=== PATIENT | female | born 1970 | race Caucasian/White ===

== ENCOUNTER 2020-05-22 08:04 | Day surgery (SDC) | payer BC ==
[2020-05-19 10:02] LABS: HEMATOCRIT 39.8 % (36.0-47.0); HEMOGLOBIN 13.5 g/dL (12.0-15.5); MEAN CORPUSCULAR HEMOGLOBIN 30.9 pg (27.0-33.4); MEAN CORPUSCULAR HGB CONC 33.9 g/dL (32.0-36.0); MEAN CORPUSCULAR VOLUME 91 fl (80-97); PLATELET COUNT 298 10^3/uL (150-450); RED BLOOD COUNT 4.37 10^6/uL (3.72-5.28); RED CELL DISTRIBUTION WIDTH 13.8 % (11.5-14.0); WHITE BLOOD COUNT 9.5 10^3/uL (4.0-10.5)
[~2020-05-22 08:04] MED LIST: ACETAMINOPHEN 325 MG TABLET PO PRN; CEFAZOLIN 2 GM/D5W RTU 2 GM/50 ML RTUPB IV ONE; CEFAZOLIN SODIUM 2 GM in DEXTROSE 5%-WATER 100 ML IV PRN; LACTATED RINGERS 1000 ML IV PRN; LIDOCAINE 0.5% INJ-PF (5 MG/ML) 50 ML SDV SUBCUT PRN
[2020-05-22] MEDS ORDERED: BUPIVACAINE INJ/PF LIPOSOME/PF 266 MG/20 ML SDV ONE (09:43)
[2020-05-22] MEDS ORDERED: HEPARIN SOD (PORCINE) 1,000 UNIT/ML 10 ML VIAL ONE (09:43)
[2020-05-22] MEDS ORDERED: MIDAZOLAM 2 MG/2 ML INJ ONE (09:44)
[2020-05-22] MEDS ORDERED: FENTANYL CITRATE INJ/PF 100 MCG/2 ML AMPUL ONE (09:44)
[2020-05-22] MEDS ORDERED: PROPOFOL INJ 200 MG/20 ML VIAL IV ONE (09:45)
[2020-05-22] MEDS ORDERED: HEPARIN SOD (PORCINE) 1,000 UNIT/ML 1 ML VIAL ONE (09:47)
[2020-05-22] MEDS ORDERED: DEXMEDETOMIDINE INJ 80 MCG/20 ML VIAL IV ONE (09:51)
[2020-05-22] MEDS ORDERED: LIDOCAINE 1%/EPINEPHRINE INJ 20 ML VIAL ONE (10:19)
[2020-05-22] MEDS ORDERED: DIPHENHYDRAMINE HCL 50 MG/ML VIAL IV PRN (10:28)
[2020-05-22] MEDS ORDERED: MEPERIDINE HCL/PF INJ 25 MG/1 ML DISP.SYRIN IV PRN (10:28)
[2020-05-22] MEDS ORDERED: PROMETHAZINE HCL INJ 25 MG/1 ML VIAL IV PRN (10:28)
[2020-05-22] MEDS ORDERED: FENTANYL CITRATE INJ/PF 100 MCG/2 ML AMPUL IV PRN (10:28)
--- NOTE | 2020-05-22 10:58 | Operative Report ---
Nonrecallable Operative Report DATE OF SURGERY: 05/22/20 PREOPERATIVE DIAGNOSIS: Nasopharyngeal carcinoma POSTOPERATIVE DIAGNOSIS: Nasopharyngeal carcinoma OPERATION: Port-A-Cath placement right chest SURGEON: BEBA ANAYA ANESTHESIA: Moderate Sedation TISSUE REMOVED OR ALTERED: None COMPLICATIONS: None ESTIMATED BLOOD LOSS: 5 cc INTRAOPERATIVE FINDINGS: See note PROCEDURE: Patient was brought to the operating room awake alert in stable condition placed in the operative table supine position and given IV sedation. The right chest and neck were prepped and draped usual sterile fashion. After appropriate timeout site verification the procedure commenced. After anesthetizing the skin below the right clavicle with 1% lidocaine with epinephrine a subclavian stick was made and access to the vein was obtained a J- wire was placed into the needle and manipulated to the superior vena cava. The dilator introducer set was then placed over the wire into the superior vena cava and the catheter was placed into the tear-away introducer was positioned above the right atrium and the tear-away introducer was pulled away. A on the right chest wall then the skin was anesthetized about 10 cm distal to that subclavian stick site. A transverse incision was made with a 15 blade dissection was carried down through subcutaneous tissue with Bovie cautery a pocket was made on the anterior chest wall. The tunnel maker utilized with the port was attached to the catheter in the right chest tunneled from that subclavian stick site to the port site. The catheter was then appropriately sized attached to the port and the port was placed into the pocket created. It flushed and withdrew well. It was heparinized with heparinized saline solution. The subcutaneous tissue was then reapproximated with interrupted 3-0 Vicryl and the skin was reapproximated intracuticular 4-0 Biosyn Steri-Strips completed the procedure estimated blood loss was less than 10 cc sponge needle counts correct x2 patient was then transferred recovery in stable condition
[2020-05-22] MEDS ORDERED: OXYCODONE-ACETAMINOPHEN 5-325 MG TABLET PO PRN (11:00)
--- NOTE | 2020-05-22 11:00 | Discharge Summary ---
Discharge Summary (SDC) - Discharge Final Diagnosis: Nasopharyngeal carcinoma Date of Surgery: 05/22/20 Discharge Date: 05/22/20 Condition: Good Forms: ASU Anesthesia D/C Instruction, Discharge POC-Surgical Service Referrals: BEBA ANAYA MD [ACTIVE STAFF] - 06/02/20 9:45 am Discharge Diet: As Tolerated Discharge Activity: Activity As Tolerated Report the Following to Your Physician Immediately: Shortness of Breath - Patient needs a follow-up with me in 7 to 10 days
--- NOTE | 2020-05-22 12:09 | RADIOLOGY REPORT (SQ) ---
EXAM DESCRIPTION: CHEST SINGLE VIEW IMAGES COMPLETED DATE/TIME: 05/22/2020 11:34 am REASON FOR STUDY: post port placement COMPARISON: None. EXAM PARAMETERS: NUMBER OF VIEWS: One view. TECHNIQUE: Single frontal radiographic view of the chest acquired. RADIATION DOSE: NA LIMITATIONS: None. FINDINGS: LUNGS AND PLEURA: No opacities, masses or pneumothorax. No pleural effusion. MEDIASTINUM AND HILAR STRUCTURES: No masses. Contour normal. HEART AND VASCULAR STRUCTURES: Heart normal in size. Normal vasculature. BONES: No acute findings. HARDWARE: Right anterior chest wall Port-A-Cath terminates in the region of the cavoatrial junction. The appearance of angulation as it courses below the clavicle is likely on the basis of obliquity. OTHER: No other significant finding. IMPRESSION: 1. No pneumothorax. 2. Right anterior chest wall Port-A-Cath terminates in the region of the cavoatrial junction. The a ppearance of angulation as it courses below the clavicle is likely due to obliquity of imaging. A la teral radiograph can confirm this if clinically indicated. TECHNICAL DOCUMENTATION: JOB ID: [id number] 2010 [employer]- All Rights Reserved Reading location - IP/workstation name: [email or web address]
[2020-05-22 12:52] VITALS: BP 136/82
--- NOTE | 2020-05-22 13:53 | RADIOLOGY REPORT (SQ) ---
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 FLUOROSCOPY TIME: 0.7 minutes 3 images saved to PACS. TECHNIQUE: Intra-operative images acquired during surgical procedure to evaluate progress. NUMBER OF IMAGES: 3 LIMITATIONS: None. FINDINGS: Right side port tip overlying SVC. IMPRESSION: IMAGE(S) OBTAINED DURING PROCEDURE. COMMENT: Quality ID [id number]: Final reports for procedures using fluoroscopy that document radiation exp osure indices, or exposure time and number of fluorographic images (if radiation exposure indices are not available) Please consult full operative report of the attending physician for description of the procedure. TECHNICAL DOCUMENTATION: JOB ID: [id number] 2010 [employer]- All Rights Reserved Reading location - IP/workstation name: [email or web address]
== END 2020-05-22 12:40 | disposition home or self-care (01) ==
LOC: OROUT 08:04
PROVIDERS: ATTEND Surgery
DX: C11.9 Malignant neoplasm of nasopharynx, unspecified (principal); R63.4 Abnormal weight loss; Z87.442 Personal history of urinary calculi; F17.210 Nicotine dependence, cigarettes, uncomplicated; Z03.818 Encounter for observation for suspected exposure to other biological agents ruled out
CPT/HCPCS: 36561; 36415; 85027; 87635; 71045; 77001; 00532; C1788; Q9967; J2250; J0690 ×2; J3010; J1644; J3490 ×2; J7060; J2704; C9290; C9803; 532

== ENCOUNTER → 2020-09-08 | Outpatient (CLI) | payer BC ==
--- NOTE | 2020-09-08 16:04 | RADIOLOGY REPORT (SQ) ---
EXAM DESCRIPTION: CT SOFT TISSUE NECK COMBO IMAGES COMPLETED DATE/TIME: 09/08/2020 8:01 am REASON FOR STUDY: MAL AISHWARYA OF, follow-up. Completed chemotherapy and radiation. NASOPHARYNX, UNSPEC C11.9 MALIGNANT NEOPLASM OF NASOPHARYNX, UNSPECIFIED COMPARISON: CT soft tissue neck, 04/01/2020. PET CT, 05/06/2020. TECHNIQUE: Post IV contrasted scanning from skull base through lung apices with review of bone, soft tissue and lung windows. Reconstructed coronal and sagittal MPR images reviewed. All images stored on PACS. All CT scanners at this facility use dose modulation, iterative reconstruction, and/or weight based d osing when appropriate to reduce radiation dose to as low as reasonably achievable (ALARA). [facility]: Dose Right [facility]: CareDose [facility]: Dose Right [facility]: Teradose 4D [facility]: QuantaLife CONTRAST TYPE AND DOSE: contrast/concentration: Isovue 350.00 mmol/ml; Total Contrast Delivered: 75. 0 ml; Total Saline Delivered: 55.0 ml RENAL FUNCTION: None required. The patient is less than 50 years old. RADIATION DOSE: . LIMITATIONS: None. FINDINGS: SKULL BASE: Intact. MAJOR SALIVARY GLANDS: No solid or cystic masses. No inflammatory changes. LYMPHADENOPATHY: Necrotic left cervical lymph node has decreased in size since previous now measuring 2.9 x 1.7 cm, previously 3.3 x 3 cm. Interval resolution of the right cervical adenopathy. MUCOSAL MASSES OR ASYMMETRY: Interval resolution of the left nasopharyngeal mass since previous [facility]. Cystic lesions at the tongue base more anteriorly measuring 1.8 x 1 cm and posteriorly measu ring 1.9 x 1.2 cm, stable from prior. Layering fat density is seen in the more anterior lesion, unch anged, consistent with a lingual dermoid. LARYNX/CORDS: No abnormal findings. VASCULAR STRUCTURES: The major vessels are patent. LUNG APICES: Clear. BONES: Intact. THYROID: Normal size. No masses. PARANASAL SINUSES: Clear. OTHER: No other significant finding. IMPRESSION: 1. Interval resolution of the left nasopharyngeal mass. No residual CT finding. 2. Decreasing size of the necrotic left cervical lymph node. Interval resolution of the right cervic al adenopathy. Findings are consistent with response to therapy. TECHNICAL DOCUMENTATION: JOB ID: [id number] Quality ID # [id number]: Final reports with documentation of one or more dose reduction techniques (e.g., Au tomated exposure control, adjustment of the mA and/or kV according to patient size, use of iterative reconstruction technique) 2010 [employer]- All Rights Reserved Reading location - IP/workstation name: [email or web address]
== END ==
LOC: RAD 08:58
PROVIDERS: ATTEND Radiology Radiation Oncology
DX: C11.9 Malignant neoplasm of nasopharynx, unspecified (principal)
CPT/HCPCS: 70492